=== PATIENT | female | born 1960 | race Hispanic/Latino ===

== ENCOUNTER 2024-10-15 21:26 | Emergency (ER) | payer SELFPAY ==
[~2024-10-15] VITALS: Ht 160 cm; Wt 83.9 kg
[2024-10-15] MEDS: ACETAMINOPHEN 325 MG TAB PO STA (21:39)
[2024-10-15 23:29] VITALS: PULSE 78; RESP 16; TEMP 98.4; O2SAT 98
== END 2024-10-15 23:30 | disposition home or self-care (01) ==
LOC: ER 21:30
DX: S05.12XA Contusion of eyeball and orbital tissues, left eye, initial encounter (principal); S63.592A Other specified sprain of left wrist, initial encounter; W01.0XXA Fall on same level from slipping, tripping and stumbling without subsequent striking against object, initial encounter; Y93.01 Activity, walking, marching and hiking; Y92.238 Other place in hospital as the place of occurrence of the external cause; E03.9 Hypothyroidism, unspecified
CPT/HCPCS: 70480; 99284